=== PATIENT | female | born 1990 | race Caucasian/White ===

== ENCOUNTER 2019-03-02 11:19 | Inpatient (IN) | payer OTHER ==
[~2019-03-02] VITALS: Ht 162.6 cm; Wt 80.8 kg
[2019-03-02] VITALS (49 sets, daily range): BP systolic 83–164; BP diastolic 48–105
[2019-03-02] MEDS ORDERED: PRENTAB9 PO (11:36)
[2019-03-02] MEDS ORDERED: PROBCAP14 PO (11:36)
[2019-03-02] MEDS ORDERED: LACTATED RINGER'S 1000 ML IV STA (12:18)
[2019-03-02] MEDS ORDERED: OXYTOCIN DRIP 30 UNITS in APPROPRIATE DILUENT 1 EA IV SCH ×2 (12:45→23:32)
--- NOTE | 2019-03-02 12:48 | HPEPDOC ---
Obstetrical History & Physical General Date of Admission Mar 02, 2019 at 11:19 History of Present Illness 29 yo at 41+1 weeks gestation by LMP of [id number] c/w 9+2 week US on 019 presents to L&D today for an IOL for late term . Ms. Davies reports feeling well. She has had intermittent contractions that have become somewhat regular. She denies any vaginal bleeding or significant leakage of fluid. She endorses excellent movement. Chief Complaint: Induction of labor Information Provided By: Patient Age: 29 : 1 Term: 0 Pre-term: 0 Abortions: 0 Livin Care Care: Good Care Dating Final EDC: Feb 22, 2019 Final EDC for Daily Update: Feb 22, 2019 Final EDC by: LMP (MACIE by LMP of 18May2018 c/w 9+2 week US on [id number]) LMP: May 18, 2018 1st Trimester Date: Jul 27, 2018 Antepartum Course Diagnos(e)s Gestational thrombocytopenia --> platelets 97 at 36 weeks. Completed prednisone taper. 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 Past Medical History Medical History Apparent mild hearing loss --> ENT referral Surgical History: Metter teeth, Other (ACL repair) Family History Significant Family History: No pertinent family hx Social History Marital Status: Family situation: Spouse/partner home Psychosocial History: No pertinent psych hx * Smoker: non-smoker Alcohol: Denies Drugs: denies Imunizations Tdap status: current Influenza Status: current Allergies Coded Allergies: No Known Allergies (Unverified , 03/02/19) Medications Scheduled No.137/Iron/Folic Acd ( Vitamin Tablet) 1 Each Tablet, 1 TAB PO DAILY Miscellaneous Medications Lactobacillus Acidophilus (Probiotic) 1 Each Capsule, 1 CAP PO Physical Examination Physical Examination GENERAL: Alert and oriented times three. ABDOMEN: Gravid and non-tender to touch. FETUS: Is vertex (VTX) by sterile vaginal examination (SVE) EXTREMITIES: No edema. Vital Signs/I&O Vital Signs Date Time Temp Pulse Resp B/P (MAP) Pulse Ox O2 Delivery O2 Flow Rate FiO2 03/02/19 11:38 97.4 79 18 120/70 (87) Laboratory Data 24H LABS Laboratory Tests 2 03/02/19 11:31: Serology Scanned Report Hepatitis B Testing Urine Culture: No Growth Pertinent Laboratoy Data Blood Type: O+ RBC Antibody Screen: Negative HIV: Negative Hepatitis B: Negative Hepatitis C: Unknown Rapid Plasma Reagin: Nonreactive Rubella: Immune Varicella: Immune Chlamydia/Gonorrhea: Negative Group B Streptococcus: Negative Quad Screen Test: Unknown Cystic Fibrosis: Negative Glucose Tolerance Test: 95 Anatomy Ultrasound Placenta Location: Posterior Normal Anatomy: Yes Placenta Previa: No Steroid Therapy Steroid Therapy: No Vaginal Examination Dilation: 3 cm Effacement: 80% Station: -2 Cervical Consistency: Soft Cervical Position: Middle Presentation: Cephalic presentation Position: Vertex (occiput) Assessment Heart Rate (FHR): 135 Variability: Moderate Accelerations: Positive Decelerations: None Tocometer Contractions: Yes Frequency: regular Strength: palpated as moderate Assessment/Plan Assessment 29 yo at 41+1 weeks gestation presents today for an IOL for late term . Plan Admit for IOL. Apply IV fluids. GBS negative. Cervix favorable. Will start pitocin for IOL. Regular diet until pitocin is started. Will check platelet level. Pending results and anesthesiologist consultation, would be candidate for epidural. Anticipate . DO KRYSTLE Cohn CHRISTOPHER J. DO Mar 02, 2019 12:48
[2019-03-02 13:12] LABS: BASO % 0.4 % (0.0-1.0); EOS % 0.2 % (0.0-3.0); HEMATOCRIT 40.7 % (36.0-47.0); LYMPH # 1.8 10^3/uL (1.5-6.5); LYMPH % 16.2 % (24.0-44.0); MEAN CORPUSCULAR HEMOGLOBIN 31.7 pg (27.0-33.0); MEAN CORPUSCULAR HGB CONC 34.4 g/dl (32.0-36.5); MEAN CORPUSCULAR VOLUME 92.3 fl (80.0-96.0); MONO # 0.7 10^3/uL (0.0-0.8); MONO % 5.9 % (0.0-5.0); NEUTROPHILS # 8.4 10^3/uL (1.8-7.7); NEUTROPHILS % 76.4 % (36.0-66.0); PLATELET COUNT, AUTOMATED 106 10^3/uL (150-450); RED BLOOD COUNT 4.41 10^6/uL (4.00-5.40)
[2019-03-02] MEDS ORDERED: FENTANYL 2MCG/ML ROPIVACAINE 0.2% IN 0.9% NACL 100ML IVBAG As Ordered ONE (14:50)
[2019-03-02] MEDS: LR 1,000 ML IV SCH ×3 (14:58→19:28)
[2019-03-02] MEDS ORDERED: ePHEDrine SULFATE 25 MG/5 ML(5MG/ML) SYRINGE As Ordered ONE (15:33)
[2019-03-02] MEDS ORDERED: diphenhydrAMINE INJ 50MG/ML VIAL (J1200) IV PRN (15:45)
[2019-03-02] MEDS ORDERED: LACTATED RINGER'S 1000 ML IV PRN (15:45)
[2019-03-02] MEDS ORDERED: EPIDURAL COMMENT XX SCH (15:45)
[2019-03-02] MEDS ORDERED: ONDANSETRON 4MG/2ML VIAL (J2405) IV PRN (15:45)
[2019-03-02] MEDS ORDERED: REFRIGERATOR IV KEYS XX PRN (15:45)
[2019-03-02] MEDS ORDERED: EPIDURAL/PCA KEYS XX PRN (15:45)
[2019-03-02] MEDS ORDERED: NALOXONE INJ 0.4 MG/1 ML VIAL (J2310) IV PRN (15:45)
[2019-03-02] MEDS ORDERED: FENTANYL/ROPIVACAINE/NACL BAG 100 ML EPIDURAL SCH (15:45)
[2019-03-02] MEDS: ePHEDrine SULFATE 25 MG/5 ML(5MG/ML) SYRINGE IV PRN ×2 (15:58→16:02)
--- NOTE | 2019-03-02 19:54 | IPNPDOC ---
Text Note Date of Service The patient was seen on 03/02/19. NOTE SBAR from Dr Yanez at ~1900, 41+1 augmentation, known ITP PLT's 106 Pit at 6 mu/min FHT Cat 2 since epidural, mostly cat 1. Persistent pos accels mod alvin Cx /-1, SROM with check, clr Recheck 2200, sooner prn. Sessions VS,Shanna, I+O VSShanna I+O Laboratory Tests 03/02/19 12:51 Red Blood Count 4.41, Mean Corpuscular Volume 92.3, Mean Corpuscular Hemoglobin 31.7, Mean Corpuscular Hemoglobin Concent 34.4, Red Cell Distribution Width 13.0, Neutrophils (%) (Auto) 76.4 H, Lymphocytes (%) (Auto) 16.2 L, Monocytes (%) (Auto) 5.9 H, Eosinophils (%) (Auto) 0.2, Basophils (%) (Auto) 0.4, Neutrophils # (Auto) 8.4 H, Lymphocytes # (Auto) 1.8, Monocytes # (Auto) 0.7, Eosinophils # (Auto) 0.0, Basophils # (Auto) 0.0 Vital Signs Date Time Temp Pulse Resp B/P (MAP) Pulse Ox O2 Delivery O2 Flow Rate FiO2 03/02/19 18:44 85 18 98/54 (69) 03/02/19 15:55 98.0 GABE BRASHER MD Mar 02, 2019 19:54
--- NOTE | 2019-03-02 23:40 | DNPDOC ---
[facility] Delivery Note Delivery Note DATE OF DELIVERY: [id number] PREDELIVERY DIAGNOSIS: 41+1/7 weeks' gestation and labor. POST DELIVERY DIAGNOSIS: Delivered. 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 Brasher ANESTHESIA: Epidural ESTIMATED BLOOD LOSS: 300 mL. FINDINGS: 8 pound 2 ounce male infant, Score 9/9, bandolero cord times 1, loose DELIVERY SUMMARY: Pushed very well for 1 hours. No delay of the vtx del'd JONN rest'd to LOT, no delay of either shoulder, vig baby to abd. Cord C/C by FOB. Cord blood. Placenta intact. Fundus firm, pit going 999. Small 1st degr post vag wall lac closed with 3-0 vicryl and inner right labial/periurethral lac closed with 4-0 vicryl, good hemostasis/cosmesis. Uncomplicated. Katie BRASHER,GABE Manning MD Mar 02, 2019 23:40
[2019-03-02] MEDS ORDERED: DIBUCAINE 1% OINTMENT 30GM TOP PRN (23:45)
[2019-03-02] MEDS ORDERED: MEASLES,MUMPS,RUBELLA VACCINE INJ (MMR-II) (90707) SC SCH (23:45)
[2019-03-02] MEDS ORDERED: METOCLOPRAMIDE INJ 10MG/2ML VIAL (J2765) IV PRN (23:45)
[2019-03-02] MEDS ORDERED: ACETAMINOPHEN TAB 650MG DOSE (2X325MG) PO PRN (23:45)
[2019-03-02] MEDS ORDERED: RHOGAM 300 MCG (1500 IU) INJ (J2790) IM SCH (23:45)
[2019-03-03] VITALS (7 sets, daily range): BP systolic 97–123; BP diastolic 51–64
[2019-03-03] MEDS: IBUPROFEN 800 MG TAB PO PRN ×3 (01:22→19:36)
[2019-03-03] MEDS ORDERED: SLF 3 ML SYR IV PRN (01:45)
--- NOTE | 2019-03-03 06:01 | IPNPDOC ---
Text Note Date of Service The patient was seen on 03/03/19. NOTE PPD1 status post uncomplicated spontaneous vaginal delivery, no significant de livery complications. She has been ambulating, voiding spontaneously without issue and tolerating regular diet. Nursing well, bonding appropriately. Reports lochia is light. Denies any pain or concerns other than cramping, which has improved some. VITAL SIGNS: Within normal limits, afebrile. Alert and oriented times three. Abdomen: Fundus firm at U-1 Soft, NTTP. A/P: 29 y/o G1 now P1, PPD 1, stable and doing well. PLAN: 1. D/C likely tomorrow or the next day. 2. Tylenol and Motrin for pain. 3. Routine PP Care. Sessions VS,Shanna, I+O VSShanna, I+O Laboratory Tests 03/02/19 12:51 Red Blood Count 4.41, Mean Corpuscular Volume 92.3, Mean Corpuscular Hemoglobin 31.7, Mean Corpuscular Hemoglobin Concent 34.4, Red Cell Distribution Width 13.0, Neutrophils (%) (Auto) 76.4 H, Lymphocytes (%) (Auto) 16.2 L, Monocytes (%) (Auto) 5.9 H, Eosinophils (%) (Auto) 0.2, Basophils (%) (Auto) 0.4, Neutrophils # (Auto) 8.4 H, Lymphocytes # (Auto) 1.8, Monocytes # (Auto) 0.7, Eosinophils # (Auto) 0.0, Basophils # (Auto) 0.0 Vital Signs Date Time Temp Pulse Resp B/P (MAP) Pulse Ox O2 Delivery O2 Flow Rate FiO2 03/03/19 01:27 98.9 83 18 121/64 (83) I&O- Last 24 Hours up to 6 AM 03/03/19 06:00 Intake Total 2280 ml Output Total 2200 ml Balance 80 ml SESSIONS,GABE Manning MD Mar 03, 2019 06:01
[2019-03-03] MEDS: SLF 3 ML SYR IV SCH ×3 (06:19→19:36)
[2019-03-03] MEDS: DOCUSATE SODIUM 100 MG CAP PO SCH ×2 (08:04→20:23)
[2019-03-03] MEDS: PRENATAL VITAMINS CHEWABLE TABLET PO SCH (08:04)
[2019-03-04 05:37] VITALS: BP 116/70
--- NOTE | 2019-03-04 08:27 | IPNPDOC ---
Progress Note Date of Service: Mar 04, 2019 Day#: 2 Progress Note PPD2 status post uncomplicated spontaneous vaginal delivery, no significant de livery complications. She has been ambulating, voiding spontaneously without issue and tolerating regular diet. Nursing well, bonding appropriately. Reports lochia is light. Denies any pain or concerns other than cramping VITAL SIGNS: Within normal limits, afebrile. Alert and oriented times three. Abdomen: Fundus firm at U-2 Soft, NTTP. A/P: 29 y/o G1 now P1, PPD 2, stable and doing well. Meeting discharge criteria and desires discharge home. PLAN: 1. D/C home today 2. Tylenol and Motrin for pain. 3. Routine PP Care 4. F/u 6 weeks 5. Return precautions reviewed MD Praveen VS, I&O, 24H, Fishbone Vital Signs/I&O Vital Signs Date Time Temp Pulse Resp B/P (MAP) Pulse Ox O2 Delivery O2 Flow Rate FiO2 03/04/19 05:37 98.1 64 18 116/70 (85) 98 I&O- Last 24 Hours up to 6 AM 03/04/19 06:00 Intake Total 120 ml Balance 120 ml ROQUE SPEARS MD Mar 04, 2019 08:27
[2019-03-04] MEDS ORDERED: IBUP80TA PO (08:28)
[2019-03-04] MEDS: DOCUSATE SODIUM 100 MG CAP PO SCH (08:51)
[2019-03-04] MEDS: PRENATAL VITAMINS CHEWABLE TABLET PO SCH (08:51)
== END 2019-03-04 16:00 | disposition home or self-care (01) | DRG 806 ==
LOC: M LDI 11:19 → M OBS 03-03 01:02
PROVIDERS: ADMIT Obstetrics & Gynecology; ATTEND Obstetrics & Gynecology
PROC: 10E0XZZ Delivery of Products of Conception, External Approach (ICD-10-PCS; principal; 2019-03-02)
PROC: 0HQ9XZZ Repair Perineum Skin, External Approach (ICD-10-PCS; 2019-03-02)
PROC: 3E033VJ Introduction of Other Hormone into Peripheral Vein, Percutaneous Approach (ICD-10-PCS; 2019-03-02)
DX: O48.0 Post-term pregnancy (principal); Z37.0 Single live birth; O99.12 Other diseases of the blood and blood-forming organs and certain disorders involving the immune mechanism complicating childbirth; Z3A.41 41 weeks gestation of pregnancy; D69.6 Thrombocytopenia, unspecified; O70.0 First degree perineal laceration during delivery